=== PATIENT | male | born 1995 | race Caucasian/White ===

== ENCOUNTER 2021-11-10 13:23 | Inpatient (IN) ==
[2021-11-10] MEDS ORDERED: Nicotine PATCH 7 MG/24 HR PATCH TRANSDERM ONE (15:19)
[2021-11-10] MEDS ORDERED: Thiamine 100 MG/ML 2 ml VIAL (200 mg) IM ONE (20:23)
[2021-11-10] MEDS ORDERED: Al Hydrox/Mg Hydrox/Simet LIQ 30 ML UDC PO PRN (20:27)
[2021-11-11] MEDS: Vitamin THERAPEUTIC TAB PO SCH (09:53)
[2021-11-11] MEDS: Nicotine PATCH 21 MG/24 HR PATCH TRANSDERM SCH (09:54)
[2021-11-11] MEDS: Nicotine GUM 2MG FRUIT FLAVOR PO PRN (20:28)
[2021-11-12 07:49] LABS: HDL Cholesterol 49.4 mg/dL
[2021-11-12] MEDS: Vitamin THERAPEUTIC TAB PO SCH (08:57)
[2021-11-12] MEDS: Nicotine PATCH 21 MG/24 HR PATCH TRANSDERM SCH ×2 (12:38→15:08)
[2021-11-12] MEDS: Nicotine GUM 2MG FRUIT FLAVOR PO PRN (15:07)
[2021-11-13 08:23] LABS: HDL Cholesterol 49.8 mg/dL
[2021-11-13] MEDS: Nicotine PATCH 21 MG/24 HR PATCH TRANSDERM SCH (09:56)
[2021-11-13] MEDS: Vitamin THERAPEUTIC TAB PO SCH (10:23)
[2021-11-14] MEDS: Nicotine PATCH 21 MG/24 HR PATCH TRANSDERM SCH (08:11)
[2021-11-14] MEDS: Vitamin THERAPEUTIC TAB PO SCH (08:14)
[2021-11-15] MEDS: Vitamin THERAPEUTIC TAB PO SCH (10:03)
[2021-11-15] MEDS: Nicotine PATCH 21 MG/24 HR PATCH TRANSDERM SCH (10:03)
[2021-11-16] MEDS: Vitamin THERAPEUTIC TAB PO SCH (09:08)
[2021-11-16] MEDS: Nicotine PATCH 21 MG/24 HR PATCH TRANSDERM SCH (09:09)
[2021-11-17] MEDS: Vitamin THERAPEUTIC TAB PO SCH (10:54)
[2021-11-17] MEDS: Nicotine PATCH 21 MG/24 HR PATCH TRANSDERM SCH (10:55)
[2021-11-17] MEDS: Nicotine GUM 2MG FRUIT FLAVOR PO PRN (18:24)
[2021-11-18] MEDS: Nicotine GUM 2MG FRUIT FLAVOR PO PRN (09:28)
[2021-11-18] MEDS: Vitamin THERAPEUTIC TAB PO SCH (09:28)
[2021-11-18] MEDS: Nicotine PATCH 21 MG/24 HR PATCH TRANSDERM SCH (09:32)
[2021-11-19 08:06] VITALS: BP 127/80
[2021-11-19] MEDS: Nicotine PATCH 21 MG/24 HR PATCH TRANSDERM SCH (08:26)
[2021-11-19] MEDS: Vitamin THERAPEUTIC TAB PO SCH (08:26)
== END 2021-11-19 15:04 | disposition home or self-care (01) | DRG 753 ==
LOC: ED 13:23 → BSU 19:44
PROVIDERS: ADMIT Psychiatry & Neurology Addiction Psychiatry; ATTEND Psychiatry & Neurology Addiction Psychiatry